=== PATIENT | female | born 1965 | race Caucasian/White ===

== ENCOUNTER 2017-01-26 12:34 | Observation (INO) | payer OTHER ==
[2017-01-26 12:40] VITALS: BMI 28.6
--- NOTE | 2017-01-26 12:49 | ED PDOC ---
Arrival/HPI - General Historian: Patient - History of Present Illness Time/Duration: > week (2 weerks) Symptom Onset: Gradual Symptom Course: Worsening Quality: Throbbing Severity Level: 10, Severe Activities at Onset: Other (carrying utensils) Context: Walking <Juanito Foss - Last Filed: 01/26/17 16:11> <Fahad Paige DO - Last Filed: 01/26/17 20:47> - General Chief Complaint: Lower Extremity Problem/Injury Time Seen by Provider: 01/26/17 12:44 - History of Present Illness Narrative History of Present Illness (Text): 51 F with PMH of DM presents to ED with complaint of toe infection and pain. Patient states that 2 weeks ago she dropped a box of utensils on her foot and acquired a cut. Over the following few days, the cut got worse and became infected. Patient did not think much of it and ignored it. Patient has not taken any meds or seen a doctor since it happened. Also, patient has not taken her DM meds for 7 months because her insurance ran out. Patient rates pain 10/ 10. She describes it as constant and throbbing located in R great toe. Walking, palpation exacerbates the pain. Admits to fever/chills and dischagre. Denies cp , sob, palpitations, abd pain, n/v/d. (Juanito Foss) Past Medical History - Provider Review Nursing Documentation Reviewed: Yes - Travel History Have you recently traveled outside [place] w/in the past 3 mons?: No - Infectious Disease Hx of Infectious Diseases: None - Reproductive Menopause: Yes - Cardiac Hx Cardiac Disorders: Yes Hx Hypertension: Yes - Pulmonary Hx Respiratory Disorders: No - Neurological Hx Neurological Disorder: Yes HX Cerebrovascular Accident: Yes Hx Transient Ischemic Attacks (TIA): Yes Other/Comment: Had history of 6 TIA's - HEENT Hx HEENT Disorder: No - Renal Hx Renal Disorder: No - Endocrine/Metabolic Hx Endocrine Disorders: Yes Hx Diabetes Mellitus Type 2: Yes (pt denies medication) - Hematological/Oncological Hx Blood Disorders: No - Integumentary Hx Dermatological Disorder: No - Musculoskeletal/Rheumatological Hx Osteomyelitis: No - Gastrointestinal Hx Bowel Surgery: No - Genitourinary/Gynecological Hx Genitourinary Disorders: No - Psychiatric Hx Depression: No Hx Substance Use: No - Surgical History Hx Appendectomy: Yes - Anesthesia Hx Anesthesia: Yes Hx Anesthesia Reactions: No Hx Malignant Hyperthermia: No <PipoJuanito - Last Filed: 01/26/17 16:11> Family/Social History - Physician Review Nursing Documentation Reviewed: Yes Family/Social History: Unknown Family HX Smoking Status: Heavy Smoker > 10 Cigarettes Daily Hx Alcohol Use: No Hx Substance Use: No <Juanito Foss - Last Filed: 01/26/17 16:11> Allergies/Home Meds <Juanito Foss - Last Filed: 01/26/17 16:11> <Grecia Fahad - Last Filed: 01/26/17 20:47> Allergies/Adverse Reactions: Allergies No Known Allergies Allergy (Verified 01/26/17 12:39) Home Medications: Home Meds Medication Instructions Recorded Confirmed No Known Home Med 01/26/17 01/26/17 Review of Systems - Review of Systems Constitutional: Fevers, Night Sweats. absent: Fatigue, Weight Change Eyes: absent: Vision Changes, Photophobia, Eye Pain ENT: absent: Hearing Changes, Tinnitus, TMJ Pain, Sore Throat, Rhinorrhea Respiratory: absent: SOB, Cough, Sputum, Wheezing Cardiovascular: absent: Chest Pain, Palpitations Gastrointestinal: absent: Abdominal Pain, Constipation, Diarrhea, Nausea Genitourinary Female: absent: Dysuria, Frequency, Hematuria Musculoskeletal: Arthralgias, Joint Swelling. absent: Back Pain, Neck Pain Skin: Other (r great toe red and swollen). absent: Rash Neurological: absent: Headache, Dizziness, Focal Weakness, Seizure Endocrine: absent: Diaphoresis, Polyuria, Polydipsia Hemo/Lymphatic: absent: Adenopathy, Easy Bleeding, Easy Bruising Psychiatric: absent: Anxiety, Depression, Suicidal Ideation <PipoJuanito - Last Filed: 01/26/17 16:11> Physical Exam Vital Signs Reviewed: Yes Temperature: Afebrile Blood Pressure: Normal Pulse: Regular Respiratory Rate: Normal Appearance: Positive for: Uncomfortable Pain Distress: Severe Mental Status: Positive for: Alert and Oriented X 3 - Systems Exam Head: Present: Atraumatic, Normocephalic Pupils: Present: PERRL Extroacular Muscles: Present: EOMI Conjunctiva: Present: Normal Ears: Present: Normal Mouth: Present: Moist Mucous Membranes Pharnyx: Present: Normal Nose (External): Present: Atraumatic Nose (Internal): Present: Normal Inspection Neck: Present: Normal Range of Motion, Trachea Midline Respiratory/Chest: Present: Clear to Auscultation, Good Air Exchange. No: Respiratory Distress, Accessory Muscle Use Cardiovascular: Present: Regular Rate and Rhythm, Normal S1, S2 Abdomen: Present: Normal Bowel Sounds. No: Tenderness, Distention, Peritoneal Signs, Rebound, Guarding Back: No: CVA Tenderness Upper Extremity: Present: Normal ROM, NORMAL PULSES, Neurovascularly Intact, Capillary Refill < 2s Lower Extremity: Present: NORMAL PULSES, Normal ROM, Neurovascularly Intact, Capillary Refill < 2 s, Other (R great toe erythematous, edema, tender, with some purulent discharge) Neurological: Present: GCS=15, CN II-XII Intact, Speech Normal, Motor Func Grossly Intact, Normal Sensory Function, Normal Cerebellar Funct Skin: Present: Warm, Dry, Erythematous (r great toe), Hot (R great toe) Lymphatic: No: Cervical Adenopathy, Axillary Adenopathy, Inguinal Adenopathy Psychiatric: Present: Alert, Oriented x 3, Normal Insight, Normal Concentration <Juanito Foss - Last Filed: 01/26/17 16:11> <Fahad Paige DO - Last Filed: 01/26/17 20:47> Vital Signs Temp Pulse Resp BP Pulse Ox 01/26/17 16:06 84 16 152/78 H 97 01/26/17 12:42 98.6 F 84 21 150/67 99 Medical Decision Making <Juanito Foss - Last Filed: 01/26/17 16:11> <Fahad Paige DO - Last Filed: 01/26/17 20:47> ED Course and Treatment: CBC, CMP, R geat toe and foot xr ordered. Vancomycin given. Blood culture done. Podiatry consulted. XR was read as negative. All labs were at baseline except for glucose of 204. Podiatry evaluated patient and gave topical cream with a surgical shoe. They eladia re-evaluate in AM. Patient to be admitted to hospitalist service for observation. Case discussed with Dr. Zimmer. ( Juanito Foss) In agreement with resident note, which includes further HPI details. Patient was seen and evaluated with resident, came up with plan and treatment together. (Fahad Paige DO) - Lab Interpretations Lab Results: 01/26/17 13:50 01/26/17 13:50 Lab Results 01/26/17 13:50: Sodium 139, Potassium 3.8, Chloride 105, Carbon Dioxide 23, Anion Gap 15, BUN 14, Creatinine 0.6, Est GFR ( Amer) > 60, Est GFR (Non- Af Amer) > 60, Random Glucose 204 H, Calcium 9.4, Total Bilirubin 0.3, AST 19, ALT 35, Alkaline Phosphatase 108, Total Protein 7.4, Albumin 4.1, Globulin 3.3, Albumin/Globulin Ratio 1.2 01/26/17 13:50: WBC 7.8, RBC 4.62, Hgb 13.4, Hct 39.8, MCV 86.1, MCH 29.0, MCHC 33.7, RDW 13.4, Plt Count 244, MPV 9.8, Gran % 52.5, Lymph % (Auto) 38.5 H, [place] % (Auto) 4.9, Eos % (Auto) 3.6, Baso % (Auto) 0.5, Gran # 4.11, Lymph # 3.0 , Doddridge # 0.4, Eos # 0.3, Baso # 0.04 - RAD Interpretation Radiology Orders: 01/26/17 13:10 FOOT RIGHT GREAT TOE ROUTINE [RAD] Stat - Medication Orders Current Medication Orders: Albuterol/Ipratropium (Duoneb 3 Mg/0.5 Mg (3 Ml) Ud) 3 ml IH Q2H PRN PRN Reason: Shortness of Breath Stop: 01/26/17 21:01 Albuterol/Ipratropium (Duoneb 3 Mg/0.5 Mg (3 Ml) Ud) 3 ml IH [id number] RITA Last Admin: 01/26/17 20:12 Dose: 3 ml Atorvastatin Calcium (Lipitor) 20 mg PO DIN [facility] Last Admin: 01/26/17 19:54 Dose: 20 mg Glipizide (Glucotrol) 5 mg PO ACB [facility] Last Admin: 01/26/17 19:53 Dose: 5 mg Insulin Human Regular (Humulin R Low) 0 units SC ACHS [facility] PRN Reason: Protocol Lisinopril (Zestril) 5 mg PO DAILY [facility] Last Admin: 01/26/17 19:54 Dose: 5 mg Metformin HCl (Glucophage) 500 mg PO BID [facility] Last Admin: 01/26/17 19:53 Dose: 500 mg Mupirocin (Bactroban Ointment) 0 gm TOP BID [facility] Last Admin: 01/26/17 16:38 Dose: 1 appl Nicotine (Nicoderm Cq) 1 patch TD DAILY [facility] Last Admin: 01/26/17 19:54 Dose: 1 patch Pantoprazole Sodium (Protonix Inj) 40 mg IVP DAILY [facility] Discontinued Medications Vancomycin HCl (Vancomycin 1gm) 1 gm in 250 mls @ 167 mls/hr IVPB STAT STA PRN Reason: Protocol Stop: 01/26/17 14:44 Last Admin: 01/26/17 15:06 Dose: 167 mls/hr Piperacillin Sod/Tazobactam Sod (Zosyn 3.375 In Ns 100ml) 100 mls @ 200 mls/hr IVPB STAT STA Stop: 01/26/17 17:53 <Juanito Foss - Last Filed: 01/26/17 16:11> - PA / [employer] / Resident Statement NITA has reviewed & agrees with the documentation as recorded. / has examined the patient and agrees with the treatment plan. - Scribe Statement The provider has reviewed the documentation as recorded by the Scribe <Fahad Paige DO - Last Filed: 01/26/17 20:47> - Scribe Statement Glory Keller Provider Scribe Attestation: All medical record entries made by the Scribe were at my direction and personally dictated by me. I have reviewed the chart and agree that the record accurately reflects my personal performance of the history, physical exam, medical decision making, and the department course for this patient. I have also personally directed, reviewed, and agree with the discharge instructions and disposition. (Fahad Paige DO) Disposition/Present on Arrival - Present on Arrival Any Indicators Present on Arrival: Yes History of DVT/PE: No History of Uncontrolled Diabetes: Yes Urinary Catheter: No History of Decub. Ulcer: No History Surgical Site Infection Following: None - Disposition Have Diagnosis and Disposition been Completed?: Yes Disposition Time: 15:00 Patient Plan: Admission <Juanito Foss - Last Filed: 01/26/17 16:11> - Present on Arrival Any Indicators Present on Arrival: No <Fahad Paige DO - Last Filed: 01/26/17 20:47> - Disposition Diagnosis: Toe infection Disposition: HOSPITALIZED Patient Problems: Current Active Problems Problem Status Onset Toe infection Acute Condition: FAIR
[2017-01-26] MEDS ORDERED: Vancomycin 1gm in NS 250ml 1 GM/250 ML BAG IVPB STA (13:15)
--- NOTE | 2017-01-26 13:46 | RAD ---
PROCEDURE: Right Foot and great toe Radiographs. HISTORY: r/o osteo COMPARISON: None. FINDINGS: BONES: Normal. No fracture. JOINTS: Normal. SOFT TISSUES: Normal. OTHER FINDINGS: None. IMPRESSION: Normal right foot radiographs.
[2017-01-26 14:04] LABS: ALB/GLOB RATIO 1.2 (1.1-1.8); ALBUMIN 4.1 g/dL (3.0-4.8); ALT/SGPT 35 U/L (7-56); AST/SGOT 19 U/L (15-39); BLOOD UREA NITROGEN 14 mg/dL (7-21); CALCIUM 9.4 mg/dL (8.4-10.5); GFR AFRICAN-AMERICAN > 60; GFR NON-AFRICAN AMERICAN > 60
[2017-01-26 14:12] LABS: BASO # 0.04 K/mm3 (0.0-2.0); BASO % 0.5 % (0.0-3.0); EOS # 0.3 (0.0-0.7); EOS % 3.6 % (1.5-5.0); GRAN # 4.11 (1.4-6.5); GRAN % 52.5 % (50.0-68.0); HEMOGLOBIN 13.4 gm/dL (12.0-16.0); LYMPH % 38.5 % (22.0-35.0); MEAN CELL VOLUME 86.1 fL (80.0-105.0); MEAN CORPUSCULAR HGB CONC 33.7 g/dl (31.0-37.0); MEAN PLATELET VOLUME 9.8 fl (7.0-11.0); MONO # 0.4 (0.1-0.6); MONO % 4.9 % (1.0-6.0); PLATELET COUNT 244 10^3/uL (120.0-450.0); RBC 4.62 10^6/uL (3.5-6.1); RED CELL DISTRIBUTION WIDTH 13.4 % (11.5-14.5); WHITE BLOOD COUNT 7.8 10^3/ul (4.5-11.0)
--- NOTE | 2017-01-26 14:50 | CP.PCM.CON ---
<Taylor Dupont - Last Filed: 01/28/17 19:31> History of Present Illness - History of Present Illness History of Present Illness: 51 year old female with PMHx including DM, HTN, HLD, stroke was seen in the ED for right great toe pain. She states that two weeks ago she dropped utensils on her toe. After the incident her toe saw swollen and had a blood blister which has since resolved. Patient states that she does not have insurance so she did not seek medical attention hoping her toe would improve. She used a cream from the pharmacy but does not recall what the cream is. She admits it is painful to touch. She states that she soaks it in hot water daily and dressing is with a gauze. She states that the toe drains blood and yellow watery fluid. She denies any n/v/sob/cp. Past Patient History - Infectious Disease Hx of Infectious Diseases: None - Past Social History Smoking Status: Heavy Smoker > 10 Cigarettes Daily - CARDIAC Hx Cardiac Disorders: Yes Hx Hypertension: Yes - PULMONARY Hx Respiratory Disorders: No - NEUROLOGICAL Hx Neurological Disorder: Yes HX Cerebrovascular Accident: Yes Hx Transient Ischemic Attacks (TIA): Yes Other/Comment: Had history of 6 TIA's - HEENT Hx HEENT Problems: No - RENAL Hx Chronic Kidney Disease: No - ENDOCRINE/METABOLIC Hx Endocrine Disorders: Yes Hx Diabetes Mellitus Type 2: Yes (pt denies medication) - HEMATOLOGICAL/ONCOLOGICAL Hx Blood Disorders: No - INTEGUMENTARY Hx Dermatological Problems: No - MUSCULOSKELETAL/RHEUMATOLOGICAL Hx Osteomyelitis: No - GASTROINTESTINAL Hx Bowel Surgery: No - GENITOURINARY/GYNECOLOGICAL Hx Genitourinary Disorders: No - PSYCHIATRIC Hx Depression: No Hx Substance Use: No - SURGICAL HISTORY Hx Appendectomy: Yes - ANESTHESIA Hx Anesthesia: Yes Hx Anesthesia Reactions: No Hx Malignant Hyperthermia: No Meds Allergies/Adverse Reactions: Allergies Allergy/AdvReac Type Severity Reaction Status Date / Time No Known Allergies Allergy Verified 01/26/17 12:39 - Medications Medications: Current Medications Mupirocin (Bactroban Ointment) 0 gm TOP BID RITA Physical Exam - Constitutional Appears: Well, Non-toxic, No Acute Distress - Extremities Exam Additional comments: Lower extremity focused exam: Vasc: DP and PT pulses palpable 2/4 b/l. CFT < 3 seconds to all digits b/l. Skin temperature warm to warm from proximal to distal b/l. No edema noted b/l. Neuro: gross sensation diminished b/l Ortho: Tenderness on palpation to right hallux and nail Derm: Erythema and slight calor noted to right hallux. Nail is attached to the bed, and the proximal nail fold is blanched. No drainage, no purulence, no malodor noted. - Neurological Exam Neurological exam: Alert, Oriented x3 - Psychiatric Exam Psychiatric exam: Normal Affect, Normal Mood Results - Vital Signs Recent Vital Signs: Last Vital Signs Temp 98.6 F 01/26/17 12:42 Pulse 84 01/26/17 12:42 Resp 21 01/26/17 12:42 BP 150/67 01/26/17 12:42 Pulse Ox 99 01/26/17 12:42 - Labs Result Diagrams: 01/26/17 13:50 01/26/17 13:50 Labs: Laboratory Results - last 24 hr 01/26/17 01/26/17 13:50 13:50 WBC 7.8 RBC 4.62 Hgb 13.4 Hct 39.8 MCV 86.1 MCH 29.0 MCHC 33.7 RDW 13.4 Plt Count 244 MPV 9.8 Gran % 52.5 Lymph % (Auto) 38.5 H Wilkin % (Auto) 4.9 Eos % (Auto) 3.6 Baso % (Auto) 0.5 Gran # 4.11 Lymph # 3.0 Wilkin # 0.4 Eos # 0.3 Baso # 0.04 Sodium 139 Potassium 3.8 Chloride 105 Carbon Dioxide 23 Anion Gap 15 BUN 14 Creatinine 0.6 Est GFR ( Amer) > 60 Est GFR (Non-Af Amer) > 60 Random Glucose 204 H Calcium 9.4 Total Bilirubin 0.3 AST 19 ALT 35 Alkaline Phosphatase 108 Total Protein 7.4 Albumin 4.1 Globulin 3.3 Albumin/Globulin Ratio 1.2 Assessment & Plan - Assessment and Plan (Free Text) Assessment: 51 year old female with traumatic injury to right hallux Plan: patient examined and evaluated discussed in detail with attending, Dr. Sow chart, labs, vitals reviewed;afebrile, WBC 7.8 radiograph reviewed: impression -normal foot radiograph surgical shoe ordered for r foot bactroban ordered to be applied to r hallux and dressed with gauze podiatry will continue to follow patient while in house <Cristina Sow - Last Filed: 01/29/17 19:45> Results - Vital Signs Recent Vital Signs: Last Vital Signs Temp 98.8 F 01/27/17 07:49 Pulse 89 01/27/17 09:55 Resp 20 01/27/17 07:49 BP 128/71 01/27/17 09:55 Pulse Ox 97 01/27/17 07:49 - Labs Result Diagrams: 01/27/17 07:00 01/27/17 07:00 Labs: Laboratory Results - last 24 hr 01/27/17 08:26 Hemoglobin A1c 8.3 H Attending/Attestation - Attestation I have personally seen and examined this patient.: Yes I have fully participated in the care of the patient.: Yes I have reviewed all pertinent clinical information: Yes
[2017-01-26 16:07] VITALS: O2SAT 97
[2017-01-26] MEDS ORDERED: Piperacillin/Tazobact 3.375 gm Inj IVPB ONE (16:59)
[2017-01-26] MEDS ORDERED: Albuterol-Ipratrop 3 mg / 0.5 (3 ml) UD IH PRN (16:59)
--- NOTE | 2017-01-26 17:20 | CP.PCM.HP ---
<MYLENE WOOD - Last Filed: 01/26/17 17:09> History of Present Illness - History of Present Illness History of Present Illness: Pt is 51 year old female with pMHx of DM, HTN, HLD, CVA, and asthma presents c/ o right great toe swelling, redness, and pain. Pt states that she dropped a metal cooking utensil on her foot 13 days ago. Pt did not seek medical advice initially believing the pain and swelling would subside and due to not having insurance. Pt states that there was no pain for the initial 2 days, but the pain and swelling increased in the past week. The wound eventually opened and the pt stated blood and pus was expressed. She describes the pain as a throbbing sensation and is at a 10/10 right now. She used a natural home remedy , which improved her pain. The pain is exacerbated by ambulation. Pt was previously on medications for DM, CVA, HTN, and HLD, but states that she has not taken any of her medications since July 2016 due to cost. Pt denied CP, SOB, n/v/f, chills, and abdominal pain. PMHx: DM, HTN, Asthma, HLD, CVA x7 Surg: Appendectomy Social: smokes about 3 packs a day, drinks Pashto coffee, currently unemployed , denied alcohol and illicit drug use FMH: Diabetes- paternal Medications: Dulera Inhaler Ventolin HFA Inhaler Present on Admission - Present on Admission Any Indicators Present on Admission: No Review of Systems - Review of Systems All systems: reviewed and no additional remarkable complaints except - Constitutional Constitutional: absent: Fever, Headache, Weakness - EENT Eyes: absent: Change in Vision, Loss of Vision Ears: absent: Ear Pain, Tinnitus Nose/Mouth/Throat: absent: Epistaxis, Nasal Congestion - Cardiovascular Cardiovascular: absent: Chest Pain, Dyspnea, Edema, Leg Edema, Orthopnea - Respiratory Respiratory: Cough, Wheezing. absent: Hemoptysis, Dyspnea on Exertion, Chest Congestion - Gastrointestinal Gastrointestinal: absent: Abdominal Pain, Constipation, Diarrhea, Hematochezia - Musculoskeletal Musculoskeletal: Abnormal Gait (antalgic). absent: Arthralgias, Atrophy - Integumentary Additional comments: Swelling, erythema, pain, blood/pus discharge from right great toe - Neurological Neurological: absent: Abnormal Gait, Abnormal Hearing, Abnormal Movements, Behavioral Changes, Headaches - Hematologic/Lymphatic Hematologic: absent: Easy Bleeding, Easy Bruising (previously on Plavix, which caused truncal bruising) Past Patient History - Infectious Disease Hx of Infectious Diseases: None - Past Social History Smoking Status: Heavy Smoker > 10 Cigarettes Daily - CARDIAC Hx Cardiac Disorders: Yes Hx Hypertension: Yes - PULMONARY Hx Respiratory Disorders: No - NEUROLOGICAL Hx Neurological Disorder: Yes HX Cerebrovascular Accident: Yes Hx Transient Ischemic Attacks (TIA): Yes Other/Comment: Had history of 6 TIA's - HEENT Hx HEENT Problems: No - RENAL Hx Chronic Kidney Disease: No - ENDOCRINE/METABOLIC Hx Endocrine Disorders: Yes Hx Diabetes Mellitus Type 2: Yes (pt denies medication) - HEMATOLOGICAL/ONCOLOGICAL Hx Blood Disorders: No - INTEGUMENTARY Hx Dermatological Problems: No - MUSCULOSKELETAL/RHEUMATOLOGICAL Hx Osteomyelitis: No - GASTROINTESTINAL Hx Bowel Surgery: No - GENITOURINARY/GYNECOLOGICAL Hx Genitourinary Disorders: No - PSYCHIATRIC Hx Depression: No Hx Substance Use: No - SURGICAL HISTORY Hx Appendectomy: Yes - ANESTHESIA Hx Anesthesia: Yes Hx Anesthesia Reactions: No Hx Malignant Hyperthermia: No Meds Allergies/Adverse Reactions: Allergies Allergy/AdvReac Type Severity Reaction Status Date / Time No Known Allergies Allergy Verified 01/26/17 12:39 Physical Exam - Head Exam Head Exam: ATRAUMATIC, NORMOCEPHALIC - Eye Exam Eye Exam: EOMI, PERRL - ENT Exam ENT Exam: Mucous Membranes Moist - Respiratory Exam Respiratory Exam: Wheezes. absent: Rales, Rhonchi - Cardiovascular Exam Cardiovascular Exam: RRR, +S1, +S2. absent: Diastolic murmur, Gallop, Rubs, Systolic Murmur - GI/Abdominal Exam GI & Abdominal Exam: Soft. absent: Distended, Guarding, Rebound, Tenderness - Extremities Exam Additional comments: Right Great toe: erythema, swelling, tender to palpation, visible bruising. - Neurological Exam Neurological exam: Alert, Oriented x3 - Psychiatric Exam Psychiatric exam: Normal Affect - Skin Skin Exam: Erythema Results - Vital Signs Recent Vital Signs: Last Vital Signs Temp 98.6 F 01/26/17 12:42 Pulse 84 01/26/17 16:06 Resp 16 01/26/17 16:06 BP 152/78 H 01/26/17 16:06 Pulse Ox 97 01/26/17 16:06 - Labs Result Diagrams: 01/26/17 13:50 01/26/17 13:50 Assessment & Plan - Assessment and Plan (Free Text) Assessment: 51 yo F presents with pMHx of DM, asthma, HTN, HLD, CVA presents with right hallux pain and swelling. Pt admitted for tramautic injury of the right hallux, cellulitis, r/o osteomyelitis. 1. Traumatic Injury to the Right Hallux, Cellulitis r/o Osteomyelitis -Podiatry following, recommendations appreciated -Foot xray unremarkable -ID consulted -WBC 7.8 -Bactroban applied to wound -Vancomycin + Zosyn IVPB once -F/u MRI, procalcitonin 2. Asthma -Duoneb Q2H PRN, Q6H Standing 3. DM -Monitor glucose -F/u hemoglobin A1c -Metformin, Glipizide -Humulin ISS, fingercheck ACHS 4. HTN -Monitor BP -Lisinopril 5 mg daily 5. HLD -F/u lipid panel, BNP, TSH -Lipitor 20 mg daily 6. Nicotine abuse -Nicoderm patch 7. GI PPx -Protonix Pt seen and discussed in detail with Dr. Zimmer. <Too Zimmer - Last Filed: 01/28/17 13:07> Results - Vital Signs Recent Vital Signs: Last Vital Signs Temp 98.8 F 01/27/17 07:49 Pulse 89 01/27/17 09:55 Resp 20 01/27/17 07:49 BP 128/71 01/27/17 09:55 Pulse Ox 97 01/27/17 07:49 - Labs Result Diagrams: 01/27/17 07:00 01/27/17 07:00 Labs: Laboratory Results - last 24 hr 01/27/17 07:00 C-React Prot High Sens 6.03 H Attending/Attestation - Attestation I have personally seen and examined this patient.: Yes I have fully participated in the care of the patient.: Yes I have reviewed all pertinent clinical information: Yes Notes (Text): 01/28/17 13:03 attending note; Patient seen and examined with resident in ER. Patient is a 51 year old female with pMHx of DM, HTN, HLD, CVA, and asthma presents c/o right great toe swelling, redness, and pain. Pt states that she dropped a metal cooking utensil on her foot 13 days ago. patient did not seek medical attention at that time. X-ray of the foot is negative. MRI ordered. Patient was seen by podiatry for local wound care. Patient is also not taking any medications due to insurance reasons. Advised and educated about free diabetic medications available in near by pharmacies. Also we will give prescription upon discharge for all medications required. Diet/medication compliance insisted. Heavy smoker; smokes about 2-3 packs per day. Smoking cessation is strongly advised. continue IV vancomycin and Zosyn. Patient will be referred to [facility] clinic upon discharge. Patient is advised to complete antonella Paperwork.
[2017-01-26] MEDS ORDERED: Piperacillin/Tazobact 3.375 gm 100 ML IVPB STA (17:24)
--- NOTE | 2017-01-26 18:22 | RAD ---
HISTORY: diabetes COMPARISON: No prior. FINDINGS: LUNGS: The lungs are well inflated and clear. PLEURA: No significant pleural effusion identified, no pneumothorax apparent. CARDIOVASCULAR: Normal. OSSEOUS STRUCTURES: No significant abnormalities. VISUALIZED UPPER ABDOMEN: Normal. OTHER FINDINGS: None. IMPRESSION: No acute findings.
--- NOTE | 2017-01-26 19:01 | MRI ---
PROCEDURE: MRI of the right foot without contrast HISTORY: r/o osteo COMPARISON: Comparison is made to the previous x-ray of the right foot dated 01/26/2017 TECHNIQUE: Axial coronal and sagittal MRI images of the right foot were obtained. FINDINGS: There is cortical erosion and bone marrow edema at the distal portion of the distal phalanx of the right big toe. Findings suspicious for osteomyelitis. There is adjacent skin defect and subcutaneous edema and inflammatory changes. No evidence of discrete fluid collection. Otherwise no evidence of bone marrow edema in the rest of the osseous structure of the right foot. IMPRESSION: Bone marrow edema and cortical erosion at the distal portion of the distal phalanx right big toe suggestive of osteomyelitis. Adjacent soft tissue inflammatory changes without evidence of discrete abscess formation.
[2017-01-26] MEDS: Albuterol-Ipratrop 3 mg / 0.5 (3 ml) UD IH SCH (20:12)
[2017-01-26] MEDS: Insulin Reg-LOW-Coverage SC SCH (22:00)
[2017-01-27] MEDS: Albuterol-Ipratrop 3 mg / 0.5 (3 ml) UD IH SCH ×2 (02:00→07:46)
[2017-01-27] MEDS ORDERED: Pantoprazole 40 mg EC Tab PO SCH (06:00)
[2017-01-27 07:46] LABS: MEAN CELL VOLUME 85.5 fL (80.0-105.0); MEAN CORPUSCULAR HEMOGLOBIN 28.6 pg (25.0-35.0); MEAN CORPUSCULAR HGB CONC 33.5 g/dl (31.0-37.0); MEAN PLATELET VOLUME 10.2 fl (7.0-11.0); RBC 4.89 10^6/uL (3.5-6.1); RED CELL DISTRIBUTION WIDTH 13.6 % (11.5-14.5); WHITE BLOOD COUNT 7.4 10^3/ul (4.5-11.0)
[2017-01-27 08:12] LABS: ALB/GLOB RATIO 1.3 (1.1-1.8); ALBUMIN 4.1 g/dL (3.0-4.8); ALT/SGPT 38 U/L (7-56); AST/SGOT 21 U/L (15-39); BLOOD UREA NITROGEN 19 mg/dL (7-21); CALCIUM 9.8 mg/dL (8.4-10.5); GFR AFRICAN-AMERICAN > 60; GFR NON-AFRICAN AMERICAN > 60; HDL CHOLESTEROL 41 mg/dL (29-60); LDL CHOLESTEROL 56 mg/dL (0-129); MAGNESIUM 1.8 mg/dL (1.7-2.2)
[2017-01-27] MEDS ORDERED: Vancomycin 1gm in NS 250ml 1 GM/250 ML BAG IVPB SCH (09:45)
[2017-01-27] MEDS: Insulin Reg-LOW-Coverage SC SCH (09:54)
[2017-01-27 12:00] VITALS: BP 128/71; PULSE 89; RESP 20; TEMP 98.8
--- NOTE | 2017-01-27 12:16 | CP.PCM.CON ---
History of Present Illness - History of Present Illness History of Present Illness: 51 year old female with PMH of DM, HTN, dyslipidemia, history of CVA, asthma, S/ P appendectomy came in to [facility] because of increasing pain and swelling of her right big toe. A heavy object apparently landed on her big toe about 2 weeks ago, and it slowly became more swollen and inflamed. He was told by a friend to wrap it with wet disposable towel which the patient did. In a few days, blood, serous fluid and pus started oozing out of the toe, but the toe continued to get more swollen which continues to this day. She denies animal contacts, no insect bites, no antibiotic use in the past 3 months, no wlaking barefoot on soil, no camping in wooded areas, no swimming. She also denies fever or chills, no headache or dizziness, no chest pain, no SOB, no abdominal pain, no diarrhea, no dysuria. MRI of the toe was done which showed possible osteomyelitis of the distal portion of the toe. Infectious Diseases consult is requested to further evaluate and manage. Review of Systems - Review of Systems All systems: reviewed and no additional remarkable complaints except (as per HPI ) Past Patient History - Infectious Disease Hx of Infectious Diseases: None - Past Social History Smoking Status: Former Smoker - CARDIAC Hx Cardiac Disorders: Yes Hx Hypertension: Yes - PULMONARY Hx Respiratory Disorders: No - NEUROLOGICAL Hx Neurological Disorder: Yes HX Cerebrovascular Accident: Yes Hx Transient Ischemic Attacks (TIA): Yes Other/Comment: Had history of 6 TIA's - HEENT Hx HEENT Problems: No - RENAL Hx Chronic Kidney Disease: No - ENDOCRINE/METABOLIC Hx Endocrine Disorders: Yes Hx Diabetes Mellitus Type 2: Yes (pt denies medication) - HEMATOLOGICAL/ONCOLOGICAL Hx Blood Disorders: No - INTEGUMENTARY Hx Dermatological Problems: No - MUSCULOSKELETAL/RHEUMATOLOGICAL Hx Falls: No - GASTROINTESTINAL Hx Bowel Surgery: No - GENITOURINARY/GYNECOLOGICAL Hx Genitourinary Disorders: No - PSYCHIATRIC Hx Depression: No - SURGICAL HISTORY Hx Appendectomy: Yes - ANESTHESIA Hx Anesthesia: Yes Hx Anesthesia Reactions: No Hx Malignant Hyperthermia: No Meds Allergies/Adverse Reactions: Allergies Allergy/AdvReac Type Severity Reaction Status Date / Time No Known Allergies Allergy Verified 01/26/17 12:39 - Medications Medications: Current Medications Albuterol/Ipratropium (Duoneb 3 Mg/0.5 Mg (3 Ml) Ud) 3 ml IH [id number] [facility] Last Admin: 01/26/17 20:12 Dose: 3 ml Atorvastatin Calcium (Lipitor) 20 mg PO DIN [facility] Last Admin: 01/26/17 19:54 Dose: 20 mg Glipizide (Glucotrol) 5 mg PO ACB [facility] Last Admin: 01/26/17 19:53 Dose: 5 mg Insulin Human Regular (Humulin R Low) 0 units SC ACHS [facility] PRN Reason: Protocol Last Admin: 01/26/17 22:00 Dose: Not Given Lisinopril (Zestril) 5 mg PO DAILY [facility] Last Admin: 01/26/17 19:54 Dose: 5 mg Metformin HCl (Glucophage) 500 mg PO BID [facility] Last Admin: 01/26/17 19:53 Dose: 500 mg Mupirocin (Bactroban Ointment) 0 gm TOP BID [facility] Last Admin: 01/26/17 16:38 Dose: 1 appl Nicotine (Nicoderm Cq) 1 patch TD DAILY [facility] Last Admin: 01/26/17 19:54 Dose: 1 patch Pantoprazole Sodium (Protonix Ec Tab) 40 mg PO 0600 [facility] Physical Exam - Constitutional Appears: Non-toxic, No Acute Distress - Head Exam Head Exam: NORMAL INSPECTION - ENT Exam ENT Exam: Mucous Membranes Moist - Neck Exam Neck exam: Negative for: Meningismus - Respiratory Exam Respiratory Exam: Decreased Breath Sounds. absent: Rales - Cardiovascular Exam Cardiovascular Exam: +S1, +S2 - GI/Abdominal Exam GI & Abdominal Exam: Soft. absent: Tenderness - Extremities Exam Additional comments: right toe with dry dressings in place Results - Vital Signs Recent Vital Signs: Last Vital Signs Temp 98.8 F 01/26/17 17:54 Pulse 78 01/26/17 19:54 Resp 20 01/26/17 17:54 BP 148/68 01/26/17 19:54 Pulse Ox 97 01/26/17 16:06 - Labs Result Diagrams: 01/27/17 07:00 01/27/17 07:00 Assessment & Plan - Assessment and Plan (Free Text) Plan: Assessment Consider right hallux cellulitis associated with trauma; MRI of the toe suspicious for osteomyelitis DM HTN dyslipidemia history of CVA asthma S/P appendectomy Plan started patient on Vancomycin and will follow up blood and wound cx; follow up further plans of Podiatry will monitor clinically
--- NOTE | 2017-01-27 12:22 | CP.PCM.PN ---
<YusefJenna - Last Filed: 01/27/17 12:24> Subjective - Date & Time of Evaluation Date of Evaluation: 01/27/17 Time of Evaluation: 11:10 - Subjective Subjective: 51 year old female with right hallux nail and toe injury seen at bedside with attending Dr. Sow. Patient states she is still in a little bit of pain. Patient states she wants a specific cream to be put on the toe that she always uses to heal cuts. Patient states she wishes to leave today as she needs to take care of her son. Patient states she knows that there may be an infection underneath the toenail but that she plans to leave today. She denies any n/v/sob /cp. Objective - Vital Signs/Intake and Output Vital Signs (last 24 hours): Temp Pulse Resp BP Pulse Ox 98.8 F 89 20 128/71 97 01/27/17 07:49 01/27/17 09:55 01/27/17 07:49 01/27/17 09:55 01/27/17 07:49 Intake and Output: 01/27/17 01/27/17 06:59 18:59 Intake Total 890 860 Output Total 0 Balance 890 860 - Medications Medications: Current Medications Albuterol/Ipratropium (Duoneb 3 Mg/0.5 Mg (3 Ml) Ud) 3 ml IH [id number] [facility] Last Admin: 01/27/17 07:46 Dose: 3 ml Atorvastatin Calcium (Lipitor) 20 mg PO DIN [facility] Last Admin: 01/26/17 19:54 Dose: 20 mg Glipizide (Glucotrol) 5 mg PO ACB [facility] Last Admin: 01/27/17 09:53 Dose: 5 mg Vancomycin HCl (Vancomycin 1gm) 1 gm in 250 mls @ 167 mls/hr IVPB Q12H [facility] PRN Reason: Protocol Last Admin: 01/27/17 09:54 Dose: 167 mls/hr Insulin Human Regular (Humulin R Low) 0 units SC ACHS [facility] PRN Reason: Protocol Last Admin: 01/27/17 09:54 Dose: 1 units Lisinopril (Zestril) 5 mg PO DAILY [facility] Last Admin: 01/27/17 09:55 Dose: 5 mg Metformin HCl (Glucophage) 500 mg PO BID [facility] Last Admin: 01/27/17 09:53 Dose: 500 mg Mupirocin (Bactroban Ointment) 0 gm TOP BID [facility] Last Admin: 01/27/17 09:53 Dose: 1 appl Nicotine (Nicoderm Cq) 1 patch TD DAILY [facility] Last Admin: 01/27/17 09:54 Dose: 1 patch Pantoprazole Sodium (Protonix Ec Tab) 40 mg PO 0600 [facility] Last Admin: 01/27/17 07:20 Dose: Not Given - Labs Labs: 01/27/17 07:00 01/27/17 07:00 - Constitutional Appears: Well, Non-toxic, No Acute Distress - Extremities Exam Additional comments: Left lower extremity focused exam: Vasc: DP and PT pulses palpable 2/4. CFT < 3 seconds x 5. Temperature gradient warm to warm from proximal to distal. No pedal edema noted. Neuro: gross sensation diminished Ortho: Tenderness on palpation to right hallux and nail Derm: Erythema and slight calor noted to right hallux and underneath right hallucal toenail. Nail is lifting off the nail bed, and the proximal nail fold is blanched. No drainage, no purulence, no malodor noted. - Neurological Exam Neurological Exam: Alert, Awake, Oriented x3 - Psychiatric Exam Psychiatric exam: Normal Affect, Normal Mood Assessment and Plan - Assessment and Plan (Free Text) Assessment: 51 year old female with traumatic injury to right hallux Plan: Pt seen and evaluated at bedside with attending Dr. Sow Chart, labs, vitals reviewed: afebrile, WBC 7.4 Bactroban applied to R hallux and toe dressed with gauze Wound cx taken underneath R hallucal toenail Pt states that she is aware of a possible infection underneath her right toenail but states she will be leaving AMA today Encouraged patient to follow up in wound care clinic Podiatry will remove toenail tomorrow if patient decides to stay and examine nail bed for clinical signs of infection Podiatry will continue to follow patient while in house <Cristina Sow - Last Filed: 01/28/17 18:38> Objective - Vital Signs/Intake and Output Vital Signs (last 24 hours): Temp Pulse Resp BP Pulse Ox 98.8 F 89 20 128/71 97 01/27/17 07:49 01/27/17 09:55 01/27/17 07:49 01/27/17 09:55 01/27/17 07:49 - Labs Labs: 01/27/17 07:00 01/27/17 07:00 Attending/Attestation - Attestation I have personally seen and examined this patient.: Yes I have fully participated in the care of the patient.: Yes I have reviewed all pertinent clinical information, including history, physical exam and plan: Yes
--- NOTE | 2017-01-27 23:13 | CP.PCM.DIS ---
<JERRY PALMA - Last Filed: 01/27/17 23:10> Provider - Provider Date of Admission: 01/26/17 15:18 Attending physician: Too Zimmer MD Primary care physician: NO PRIMARY CARE PROVIDER Consults: Podiatry- Dr. Magi PERLA- Adeola Time Spent in preparation of Discharge (in minutes): 42 Hospital Course - Lab Results Lab Results: Micro Results 01/27/17 11:20 Foot - Right Gram Stain - Final Most Recent Lab Values WBC 7.4 10^3/ul (4.5-11.0) 01/27/17 07:00 RBC 4.89 10^6/uL (3.5-6.1) 01/27/17 07:00 Hgb 14.0 gm/dL (12.0-16.0) 01/27/17 07:00 Hct 41.8 % (36.0-48.0) 01/27/17 07:00 MCV 85.5 fL (80.0-105.0) 01/27/17 07:00 MCH 28.6 pg (25.0-35.0) 01/27/17 07:00 MCHC 33.5 g/dl (31.0-37.0) 01/27/17 07:00 RDW 13.6 % (11.5-14.5) 01/27/17 07:00 Plt Count 257 10^3/uL (120.0-450.0) 01/27/17 07:00 MPV 10.2 fl (7.0-11.0) 01/27/17 07:00 Gran % 52.5 % (50.0-68.0) 01/26/17 13:50 Lymph % (Auto) 38.5 % (22.0-35.0) H 01/26/17 13:50 Burnet % (Auto) 4.9 % (1.0-6.0) 01/26/17 13:50 Eos % (Auto) 3.6 % (1.5-5.0) 01/26/17 13:50 Baso % (Auto) 0.5 % (0.0-3.0) 01/26/17 13:50 Gran # 4.11 (1.4-6.5) 01/26/17 13:50 Lymph # 3.0 (1.2-3.4) 01/26/17 13:50 Burnet # 0.4 (0.1-0.6) 01/26/17 13:50 Eos # 0.3 (0.0-0.7) 01/26/17 13:50 Baso # 0.04 K/mm3 (0.0-2.0) 01/26/17 13:50 ESR 11 mm/hr (0.0-20.0) 01/27/17 07:00 Sodium 139 mmol/L (132-148) 01/27/17 07:00 Potassium 4.3 mmol/L (3.6-5.0) 01/27/17 07:00 Chloride 103 mmol/L (95-110) 01/27/17 07:00 Carbon Dioxide 25 mmol/L (21-33) 01/27/17 07:00 Anion Gap 15 (10-20) 01/27/17 07:00 BUN 19 mg/dL (7-21) 01/27/17 07:00 Creatinine 0.6 mg/dL (0.5-1.4) 01/27/17 07:00 Est GFR ( Amer) > 60 01/27/17 07:00 Est GFR (Non-Af Amer) > 60 01/27/17 07:00 Random Glucose 135 mg/dL (70-110) H 01/27/17 07:00 Calcium 9.8 mg/dL (8.4-10.5) 01/27/17 07:00 Phosphorus 4.5 mg/dL (2.5-4.5) 01/27/17 07:00 Magnesium 1.8 mg/dL (1.7-2.2) 01/27/17 07:00 Total Bilirubin 0.3 mg/dL (0.2-1.3) 01/27/17 07:00 AST 21 U/L (15-39) 01/27/17 07:00 ALT 38 U/L (7-56) 01/27/17 07:00 Alkaline Phosphatase 90 U/L (38-133) 01/27/17 07:00 C-React Prot High Sens 6.03 mg/L (1.00-3.00) H 01/27/17 07:00 NT-Pro-B Natriuret Pep 33.0 pg/mL (0-450) 01/27/17 07:00 Total Protein 7.2 g/dL (5.8-8.3) 01/27/17 07:00 Albumin 4.1 g/dL (3.0-4.8) 01/27/17 07:00 Globulin 3.2 gm/dL 01/27/17 07:00 Albumin/Globulin Ratio 1.3 (1.1-1.8) 01/27/17 07:00 Triglycerides 109 mg/dL (35-160) 01/27/17 07:00 Cholesterol 121 mg/dL (130-200) L 01/27/17 07:00 LDL Cholesterol Direct 56 mg/dL (0-129) 01/27/17 07:00 HDL Cholesterol 41 mg/dL (29-60) 01/27/17 07:00 Procalcitonin < 0.05 NG/ML (0.19-0.49) L 01/27/17 07:00 TSH 3rd Generation 0.59 mIU/mL (0.46-4.68) 01/27/17 07:00 - Hospital Course Hospital Course: 51 year old female with a past medical history including DM, HTN, HLD, and stroke was seen in the ED for right great toe pain. An Xray of the patients right foot was ordered and was unremarkable. An MRI of her right foot showed findings suggestive of osteomyelitis of her right great toe. Podiatry and ID were consulted. Bactroban was applied to her wound and IV vancomycin was started , as well as zosyn given IV once. On 01/27, patient was seen by podiatry who recommended patient stay in hospital for treatment. The medicine team saw the patient and made the same recommendation. Patient then decided that she couldn' t leave her son at home for as long as she needed to be treated, so she asked to sign herself out of the hospital against medical advice. Patient was made aware of and verbalized understanding of the risks of foregoing recommended medical treatment, including but not limited to further and more complicated infections of the bone, sepsis, stroke, permanent disability and/or disfigurement, and . With verbal agreement to follow up at podiatry clinic on SundayJanuary 29 and a 7 day supply of ciprofloxacin, which was recommended by Dr. Sow, patient was signed out of [facility] against medical advice. - Date & Time of H&P Date of H&P: 01/26/17 Time of H&P: 14:47 Discharge Exam - Head Exam Head Exam: NORMAL INSPECTION - Eye Exam Eye Exam: EOMI, Normal appearance - ENT Exam ENT Exam: Mucous Membranes Moist, Normal Exam - Neck Exam Neck exam: Full Rom - Respiratory Exam Respiratory Exam: NORMAL BREATHING PATTERN, UNREMARKABLE. absent: Rales, Rhonchi, Wheezes, Respiratory Distress - Cardiovascular Exam Cardiovascular Exam: REGULAR RHYTHM, RRR, +S1, +S2 - GI/Abdominal Exam GI & Abdominal Exam: Normal Bowel Sounds, Unremarkable - Extremities Exam Additional comments: No calf tenderness or pedal edema bilaterally - Neurological Exam Neurological exam: Alert, Oriented x3 - Psychiatric Exam Psychiatric exam: Normal Affect, Normal Mood - Skin Skin Exam: Dry, Intact, Normal Color, Warm - Additional Findings Additional findings: Wound dressing on R great toe clean, dry and intact. Discharge Plan - Follow Up Plan Condition: FAIR Disposition: AGAINST MEDICAL ADVICE Referrals: PCP,NO [Primary Care Provider] - Follow up with primary Cristina Sow DPM [Staff Provider] - <Julito MYLES,[facility] - Last Filed: 02/06/17 12:04> Provider - Provider Date of Admission: 01/26/17 15:18 Attending physician: Too Zimmer MD Primary care physician: NO PRIMARY CARE PROVIDER Hospital Course - Lab Results Lab Results: Micro Results 01/27/17 11:20 Foot - Right Gram Stain - Final 01/27/17 11:20 Foot - Right Wound Culture - Final Staphylococcus Aureus Most Recent Lab Values WBC 7.4 10^3/ul (4.5-11.0) 01/27/17 07:00 RBC 4.89 10^6/uL (3.5-6.1) 01/27/17 07:00 Hgb 14.0 gm/dL (12.0-16.0) 01/27/17 07:00 Hct 41.8 % (36.0-48.0) 01/27/17 07:00 MCV 85.5 fL (80.0-105.0) 01/27/17 07:00 MCH 28.6 pg (25.0-35.0) 01/27/17 07:00 MCHC 33.5 g/dl (31.0-37.0) 01/27/17 07:00 RDW 13.6 % (11.5-14.5) 01/27/17 07:00 Plt Count 257 10^3/uL (120.0-450.0) 01/27/17 07:00 MPV 10.2 fl (7.0-11.0) 01/27/17 07:00 Gran % 52.5 % (50.0-68.0) 01/26/17 13:50 Lymph % (Auto) 38.5 % (22.0-35.0) H 01/26/17 13:50 Burnet % (Auto) 4.9 % (1.0-6.0) 01/26/17 13:50 Eos % (Auto) 3.6 % (1.5-5.0) 01/26/17 13:50 Baso % (Auto) 0.5 % (0.0-3.0) 01/26/17 13:50 Gran # 4.11 (1.4-6.5) 01/26/17 13:50 Lymph # 3.0 (1.2-3.4) 01/26/17 13:50 Burnet # 0.4 (0.1-0.6) 01/26/17 13:50 Eos # 0.3 (0.0-0.7) 01/26/17 13:50 Baso # 0.04 K/mm3 (0.0-2.0) 01/26/17 13:50 ESR 11 mm/hr (0.0-20.0) 01/27/17 07:00 Sodium 139 mmol/L (132-148) 01/27/17 07:00 Potassium 4.3 mmol/L (3.6-5.0) 01/27/17 07:00 Chloride 103 mmol/L (95-110) 01/27/17 07:00 Carbon Dioxide 25 mmol/L (21-33) 01/27/17 07:00 Anion Gap 15 (10-20) 01/27/17 07:00 BUN 19 mg/dL (7-21) 01/27/17 07:00 Creatinine 0.6 mg/dL (0.5-1.4) 01/27/17 07:00 Est GFR ( Amer) > 60 01/27/17 07:00 Est GFR (Non-Af Amer) > 60 01/27/17 07:00 POC Glucose (mg/dL) 161 mg/dL (65-110) H 01/27/17 07:13 Random Glucose 135 mg/dL (70-110) H 01/27/17 07:00 Hemoglobin A1c 8.3 % (4.2-6.5) H 01/27/17 08:26 Calcium 9.8 mg/dL (8.4-10.5) 01/27/17 07:00 Phosphorus 4.5 mg/dL (2.5-4.5) 01/27/17 07:00 Magnesium 1.8 mg/dL (1.7-2.2) 01/27/17 07:00 Total Bilirubin 0.3 mg/dL (0.2-1.3) 01/27/17 07:00 AST 21 U/L (15-39) 01/27/17 07:00 ALT 38 U/L (7-56) 01/27/17 07:00 Alkaline Phosphatase 90 U/L (38-133) 01/27/17 07:00 C-React Prot High Sens 6.03 mg/L (1.00-3.00) H 01/27/17 07:00 NT-Pro-B Natriuret Pep 33.0 pg/mL (0-450) 01/27/17 07:00 Total Protein 7.2 g/dL (5.8-8.3) 01/27/17 07:00 Albumin 4.1 g/dL (3.0-4.8) 01/27/17 07:00 Globulin 3.2 gm/dL 01/27/17 07:00 Albumin/Globulin Ratio 1.3 (1.1-1.8) 01/27/17 07:00 Triglycerides 109 mg/dL (35-160) 01/27/17 07:00 Cholesterol 121 mg/dL (130-200) L 01/27/17 07:00 LDL Cholesterol Direct 56 mg/dL (0-129) 01/27/17 07:00 HDL Cholesterol 41 mg/dL (29-60) 01/27/17 07:00 Procalcitonin < 0.05 NG/ML (0.19-0.49) L 01/27/17 07:00 TSH 3rd Generation 0.59 mIU/mL (0.46-4.68) 01/27/17 07:00 Attending/Attestation - Attestation I have personally seen and examined this patient.: Yes I have fully participated in the care of the patient.: Yes I have reviewed all pertinent clinical information, including history, physical exam and plan: Yes Notes (Text): 02/06/17 12:02 Patient was seen and examined by medical transcription supervisor.She is alert,awake and oriented.She decided to leave the hospital against medical advice.This was discussed in detail with her.The risk was discussed in detail with her.She signed out against medical advice.
== END 2017-01-27 13:11 | disposition left against medical advice (07) ==
LOC: ED 12:34 → ERH 15:18 → 3RNO 17:09
PROVIDERS: ADMIT Internal Medicine; ATTEND Internal Medicine
DX: S99.921A Unspecified injury of right foot, initial encounter (principal); L03.031 Cellulitis of right toe; J45.909 Unspecified asthma, uncomplicated; I10 Essential (primary) hypertension; E78.5 Hyperlipidemia, unspecified; E11.9 Type 2 diabetes mellitus without complications; F17.210 Nicotine dependence, cigarettes, uncomplicated; Z86.73 Personal history of transient ischemic attack (TIA), and cerebral infarction without residual deficits; W27.4XXA Contact with kitchen utensil, initial encounter; Y92.9 Unspecified place or not applicable
CPT/HCPCS: 36415; 71010; 73660; 73718; 80053; 80061; 82948; 83036; 83735; 83880; 84100; 84145; 84443; 85025; 85027; 85651; 86140; 87040; 87070; 87181; 94640; 99284; G0378; J2543

== ENCOUNTER 2017-10-28 11:25 | Emergency (ER) | payer OTHER ==
[2017-10-28 11:25] VITALS: BMI 28.6
[2017-10-28] MEDS ORDERED: Sodium Chloride 0.9% 1,000 ML IV STA (11:47)
--- NOTE | 2017-10-28 11:51 | ED PDOC ---
Arrival/HPI - General Chief Complaint: ENT Problem Time Seen by Provider: 10/28/17 11:45 Historian: Patient, Spouse - History of Present Illness Narrative History of Present Illness (Text): 10/28/17 11:48 pt p/w + 1 day onset of diffuse body pain/aches, + shivers/chills, subjective fever, mild sore throat, + dry cough, + voice changes, diffuse headaches; pt states symptoms came on quickly; pt was fine yesterday day and after a nap in the afternoon yesterday, pt became miserable with the above symptoms; pt states no sweats, no cp/sob, no abd pain, no appetite, no n/v, no numbness/tingling, no urinary/bowel changes, no diarrhea, no rashes, no fall/trauma/sick contact, 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 PCP: from strang pt stopped taking her medications ~ 1 year ago (DM/HTN/chol/stroke hx) pt lives at home with spouse Time/Duration: 24 hours Symptom Onset: Sudden Symptom Course: Worsening Severity Level: Severe Activities at Onset: Rest Context: Home Past Medical History - Provider Review Nursing Documentation Reviewed: Yes - Travel History Have you recently traveled outside [place] w/in the past 3 mons?: No - Past History Past History: No Previous - Infectious Disease Hx of Infectious Diseases: None - Reproductive Menopause: Yes Currently : No - Cardiac Hx Cardiac Disorders: Yes Hx Hypertension: Yes - Pulmonary Hx Respiratory Disorders: No - Neurological Hx Neurological Disorder: Yes HX Cerebrovascular Accident: Yes Hx Transient Ischemic Attacks (TIA): Yes Other/Comment: Had history of 6 TIA's - HEENT Hx HEENT Disorder: No - Renal Hx Renal Disorder: No - Endocrine/Metabolic Hx Endocrine Disorders: Yes Hx Diabetes Mellitus Type 2: Yes (pt denies medication) - Hematological/Oncological Hx Blood Disorders: No - Integumentary Hx Dermatological Disorder: No - Musculoskeletal/Rheumatological Hx Osteomyelitis: No - Gastrointestinal Hx Gastrointestinal Disorders: No - Genitourinary/Gynecological Hx Genitourinary Disorders: No - Psychiatric Hx Psychophysiologic Disorder: No Hx Substance Use: No - Surgical History Hx Appendectomy: Yes - Anesthesia Hx Anesthesia: Yes Hx Anesthesia Reactions: No Hx Malignant Hyperthermia: No Family/Social History - Physician Review Nursing Documentation Reviewed: Yes Family/Social History: No Known Family HX Smoking Status: Heavy Smoker > 10 Cigarettes Daily Hx Alcohol Use: No Hx Substance Use: No Hx Substance Use Treatment: No Allergies/Home Meds Allergies/Adverse Reactions: Allergies No Known Allergies Allergy (Verified 10/28/17 11:32) Review of Systems - Review of Systems Constitutional: Fatigue, Fevers, Other (chills) Eyes: Normal ENT: Normal Respiratory: Cough. absent: Sputum, Wheezing Cardiovascular: Normal Gastrointestinal: Normal Genitourinary Female: Normal Musculoskeletal: Arthralgias, Back Pain, Myalgias Skin: Normal. absent: Rash, Pruritis Neurological: Headache Endocrine: Normal Hemo/Lymphatic: Normal Psychiatric: Normal Physical Exam Vital Signs Reviewed: Yes Vital Signs Temp Pulse Resp BP Pulse Ox 10/28/17 11:32 99.1 F 99 H 17 108/66 97 10/28/17 11:25 99.1 F 99 H 17 108/66 97 Temperature: Afebrile Blood Pressure: Normal Pulse: Regular Respiratory Rate: Normal Appearance: Positive for: Well-Appearing, Uncomfortable, Other (resting in bed, cooperative, alert/awake, GCS = 15, oriented x 3, NAD, uncomfortable, + occasional dry cough is noted) Pain Distress: None Mental Status: Positive for: Alert and Oriented X 3 - Systems Exam Head: Present: Atraumatic, Normocephalic Pupils: Present: PERRL, Other (no photophobia, sclera anicteric, no nystagmus, visual field intact b/l) Extroacular Muscles: Present: EOMI Conjunctiva: Present: Normal Ears: Present: Normal Mouth: Present: Dry, Normal Teeth, Other (no drooling/stridor, no exudate/ lesions, uvula/tongue are midline) Pharnyx: Present: Normal Nose (External): Present: Atraumatic Nose (Internal): Present: Normal Inspection Neck: Present: Normal Range of Motion, Trachea Midline, Other (intact ROM, no midline tenderness, no nuchal rigidity). No: Meningeal Signs, MIDLINE TENDERNESS Respiratory/Chest: Present: Clear to Auscultation, Good Air Exchange, Other ( CTA b/l, no w/r/r). No: Respiratory Distress, Accessory Muscle Use Cardiovascular: Present: Regular Rate and Rhythm, Normal S1, S2. No: Murmurs Abdomen: Present: Normal Bowel Sounds, Other (well nourished female, no focal tenderness, no john's sign, no mcburney's point tenderness, no masses/rebound/ guarding/rigidity) Back: Present: Normal Inspection. No: CVA Tenderness, Midline Tenderness Upper Extremity: Present: Normal Inspection, Normal ROM, NORMAL PULSES, Neurovascularly Intact, Capillary Refill < 2s Lower Extremity: Present: Normal Inspection, NORMAL PULSES, Normal ROM, Neurovascularly Intact, Capillary Refill < 2 s Neurological: Present: GCS=15, CN II-XII Intact, Speech Normal Skin: Present: Warm, Normal Color, Other (cap refill ~ 1sec, no ulcerations, no petechiae, no rashes, no lesions) Psychiatric: Present: Alert, Oriented x 3 Medical Decision Making ED Course and Treatment: 10/28/17 11:49 Impression: fever/chills/sore throat/coughing, body aches i have consider all the differential diagnosis regarding pt's chief medical complaints/clinical findings, including but are not limited to: r/o flu, r/o pna A/P: fever/chills/sore throat, body pain - labs - iv - xray - ua - supportive care - observe/reevaluation 10/28/17 14:00 pt felt much improved pt states her body aches are more tolerable pt tolerated po pt's vital signs are stable pt/family are made aware of pt's medical results pt is encouraged fluids pt will f/u as directed pt will be discharged home Re-evaluation Time: 14:11 Reassessment Condition: Improved - Lab Interpretations Lab Results: 10/28/17 12:15 10/28/17 12:15 Lab Results 10/28/17 13:00: Urine Color Dark yellow, Urine Appearance Sl cloudy, Urine pH 6.5, Ur Specific [place] 1.015, Urine Protein Negative, Urine Glucose (UA) Negative, Urine Ketones Negative, Urine Blood Moderate H, Urine Nitrate Negative , Urine Bilirubin Negative, Urine Urobilinogen 0.2, Ur Leukocyte Esterase Negative, Urine RBC 1 - 3, Urine WBC Negative, Ur Epithelial Cells 1 - 3 10/28/17 12:15: Influenza Typ A,B (EIA) Negative for flu a/b 10/28/17 12:15: Serum Osmolality 284 10/28/17 12:15: pO2 38, VBG pH 7.38, VBG pCO2 50.0, VBG HCO3 29.6 H, VBG Total CO2 31.1 H, VBG O2 Sat (Calc) 78.3 H, VBG Base Excess 3.4 H, VBG Potassium 3.9, Sodium 137.0, Chloride 103.0, Glucose 134 H, Lactate 1.0, FiO2 21.0, Venous Blood Potassium 3.9 10/28/17 12:15: Grp A Beta Strep Ag Negative 10/28/17 12:15: Sodium 139, Chloride 101, Potassium 3.9, Carbon Dioxide 27, Anion Gap 15, BUN 10, Creatinine 0.6 L, Est GFR ( Amer) > 60, Est GFR ( Non-Af Amer) > 60, Random Glucose 130 H, Calcium 9.5, Total Bilirubin 0.3, AST 19, ALT 33, Alkaline Phosphatase 100, Total Protein 7.8, Albumin 4.5, Globulin 3.3, Albumin/Globulin Ratio 1.4, Lipase 62 10/28/17 12:15: WBC 10.3 D, RBC 5.16, Hgb 15.2, Hct 44.1, MCV 85.5, MCH 29.5, MCHC 34.5, RDW 13.5, Plt Count 220, MPV 9.9, Gran % 65.2, Lymph % (Auto) 26.0, [place] % (Auto) 6.9 H, Eos % (Auto) 1.4 L, Baso % (Auto) 0.5, Gran # 6.69 H, Lymph # (Auto) 2.7, [place] # (Auto) 0.7 H, Eos # (Auto) 0.1, Baso # (Auto) 0.05 I have reviewed the lab results: Yes Interpretation: All labs normal - RAD Interpretation Narrative RAD Interpretations (Text): 10/28/17 14:00 cxr - faint right lower atelectasis no obvious infiltrate/effusions noted 10/28/17 16:55 HISTORY: fever/chills/cough COMPARISON: 01/26/2017 TECHNIQUE: Chest PA and lateral FINDINGS: LUNGS: No active pulmonary disease. PLEURA: No significant pleural effusion identified. No pneumothorax apparent. CARDIOVASCULAR: Normal. OSSEOUS STRUCTURES: No significant abnormalities. VISUALIZED UPPER ABDOMEN: Normal. OTHER FINDINGS: None. IMPRESSION: No active disease. Radiology Orders: 10/28/17 11:46 CHEST TWO VIEWS (PA/LAT) [RAD] Stat Computer Forensic Examiner: ED Physician - EKG Interpretation EKG Interpretation (Text): 10/28/17 14:00 NSR at 90 bpm, normal axis, no ectopy, no st-t changes, NORMAL EKG; unchanged compare with old ekg 07/2015 Interpreted by ED Physician: Yes Type: 12 lead EKG Comparison: Similar to previous EKG - Medication Orders Current Medication Orders: Oseltamivir Phosphate (Tamiflu Cap) 75 mg PO ONCE ONE PRN Reason: Protocol Stop: 10/28/17 13:59 Discontinued Medications Aspirin (Aspirin) 325 mg PO STAT STA Stop: 10/28/17 11:48 Last Admin: 10/28/17 12:27 Dose: 325 mg Sodium Chloride (Sodium Chloride 0.9%) 1,000 mls @ 999 mls/hr IV .Q1H1M STA Stop: 10/28/17 12:47 Last Admin: 10/28/17 12:21 Dose: 999 mls/hr eMAR Start Stop Document 10/28/17 12:21 SRE (Rec: 10/28/17 12:26 SRE [id number]) Intravenous Solution Start Date 10/28/17 Start Time 12:26 End Date 10/28/17 End time 13:30 Total Infusion Time 64 Ketorolac Tromethamine (Toradol) 30 mg IVP STAT STA Stop: 10/28/17 11:48 Last Admin: 10/28/17 12:27 Dose: 30 mg MAR Pain Assessment Document 10/28/17 12:27 SRE (Rec: 10/28/17 12:28 SRE [id number]) Pain Reassessment Is this a pain reassessment? Yes Sleep Is patient sleeping during reassessment? No Presence of Pain Presence of Pain Yes Pain Scale Used Pain Scale Used Numeric Location Pain Location Body Site Throat Description Description Intermittent IVP Administration Document 10/28/17 12:27 SRE (Rec: 10/28/17 12:28 SRE [id number]) Charges for Administration # of IVP Administrations 1 Disposition/Present on Arrival - Present on Arrival Any Indicators Present on Arrival: No History of DVT/PE: No History of Uncontrolled Diabetes: Yes Urinary Catheter: No History of Decub. Ulcer: No History Surgical Site Infection Following: None - Disposition Have Diagnosis and Disposition been Completed?: Yes Diagnosis: Nonspecific syndrome suggestive of viral illness, Dehydration, Weakness Disposition: HOME/ ROUTINE Disposition Time: 14:07 Patient Plan: Discharge Patient Problems: Current Active Problems Problem Status Onset Dehydration Acute Nonspecific syndrome suggestive of viral illness Acute Weakness Acute Condition: STABLE Discharge Instructions (ExitCare): Weakness (ED), Dehydration, Adult (DC), Viral Syndrome (DC) Print Language: CITIZ[place] OF [place] Additional Instructions: Make sure to see your doctor in 1-2 days DRINK PLENTY OF FLUIDS take your medications as prescribed try 1 teaspoon of honey every 8hours for cough control RETURN TO ED IF worse pain, cant breath, persistent vomiting, high fever >101- 102 for hours, altered behavior, slurr speech, facial changes, focal weakness ( arm/leg or both), unable to urinate, heavy/persistent bleeding, passing out, chest pain, or other medical emergencies Prescriptions: Ibuprofen [Motrin] 600 mg PO QID PRN #30 tab PRN Reason: Pain, Mild (1-3) Oseltamivir [Tamiflu] 75 mg PO BID #9 cap Referrals: [facility] [place] - Follow up with primary [facility] [Outside] - Follow up with primary Forms: [employer] ([place])
[2017-10-28 12:41] LABS: VENOUS BLOOD GAS BASE EXCESS 3.4 mmol/L (0.0-2.0); VENOUS BLOOD GAS PO2 38 mm/Hg (30-55); VENOUS BLOOD PH 7.38 (7.32-7.43)
[2017-10-28 12:50] LABS: BASO # 0.05 K/mm3 (0.0-2.0); BASO % 0.5 % (0.0-3.0); EOS # 0.1 (0.0-0.7); EOS % 1.4 % (1.5-5.0); GRAN # 6.69 (1.4-6.5); GRAN % 65.2 % (50.0-68.0); HEMOGLOBIN 15.2 g/dL (12.0-16.0); LYMPH # 2.7 (1.2-3.4); MEAN CELL VOLUME 85.5 fl (80.0-105.0); MEAN CORPUSCULAR HEMOGLOBIN 29.5 pg (25.0-35.0); MEAN CORPUSCULAR HGB CONC 34.5 g/dl (31.0-37.0); MEAN PLATELET VOLUME 9.9 fl (7.0-11.0); MONO # 0.7 (0.1-0.6); MONO % 6.9 % (1.0-6.0); RBC 5.16 10^6/uL (3.5-6.1); RED CELL DISTRIBUTION WIDTH 13.5 % (11.5-14.5); WHITE BLOOD COUNT 10.3 10^3/ul (4.5-11.0)
[2017-10-28 13:07] LABS: ALB/GLOB RATIO 1.4 (1.1-1.8); ALBUMIN 4.5 g/dL (3.0-4.8); ALT/SGPT 33 U/L (7-56); AST/SGOT 19 U/L (14-36); BLOOD UREA NITROGEN 10 mg/dL (7-21); CALCIUM 9.5 mg/dL (8.4-10.5); GFR AFRICAN-AMERICAN > 60; GFR NON-AFRICAN AMERICAN > 60; LIPASE 62 U/L (23-300)
[2017-10-28 13:11] LABS: PH,URINE 6.5 (4.7-8.0); URINE BILIRUBIN NEGATIVE (NEGATIVE); URINE BLOOD MODERATE (NEGATIVE); URINE GLUCOSE (UA) NEGATIVE (NEGATIVE); URINE LEUKOCYTE ESTERASE NEGATIVE Leu/uL (NEGATIVE); URINE PROTEIN NEGATIVE mg/dL (<30 mg/dL); URINE UROBILINOGEN 0.2 E.U./dL (<1 E.U./dL)
[2017-10-28 13:14] LABS: URINE APPEARANCE SL CLOUDY (CLEAR); URINE COLOR DARK YELLOW (YELLOW)
[2017-10-28 13:18] LABS: URINE WBC NEGATIVE /hpf (0-6)
[2017-10-28 14:18] VITALS: BP 120/79; PULSE 84; RESP 19; TEMP 98.6; O2SAT 96
--- NOTE | 2017-10-28 14:31 | RAD ---
HISTORY: fever/chills/cough COMPARISON: 01/26/2017 TECHNIQUE: Chest PA and lateral FINDINGS: LUNGS: No active pulmonary disease. PLEURA: No significant pleural effusion identified. No pneumothorax apparent. CARDIOVASCULAR: Normal. OSSEOUS STRUCTURES: No significant abnormalities. VISUALIZED UPPER ABDOMEN: Normal. OTHER FINDINGS: None. IMPRESSION: No active disease.
--- NOTE | 2017-10-29 08:52 | CARD ---
APPROVED REPORT EKG Measurement Heart [id number] <Conclusion> Normal sinus rhythm Normal ECG Improved repolarization c/w ECG 08/04/15
[2017-10-31 07:56] LABS: BETA-HYDROXYBUTYRIC ACID 14 mcg/mL
== END 2017-10-28 14:20 | disposition home or self-care (01) ==
LOC: ED 11:25
DX: E86.0 Dehydration (principal); R53.1 Weakness; E11.9 Type 2 diabetes mellitus without complications; I10 Essential (primary) hypertension; F17.210 Nicotine dependence, cigarettes, uncomplicated
CPT/HCPCS: 71046; 80053; 81001; 82010; 82803; 83690; 83930; 85025; 87070; 87430; 87804; 93005; 96361; 96374; 99283; J1885; J7040